=== PATIENT | male | born 1965 | race Caucasian/White ===

== ENCOUNTER 2019-03-20 12:00 | Emergency (ER) | payer SELFPAY ==
[~2019-03-20] VITALS: Ht 170.2 cm; Wt 62.1 kg
[2019-03-20 12:03] VITALS: Ht 170.2 cm; Wt 62.1 kg
[2019-03-20 14:10] VITALS: BP 125/76
== END 2019-03-20 14:10 | disposition home or self-care (01) ==
LOC: ED 12:00
DX: S90.414A Abrasion, right lesser toe(s), initial encounter (principal); W20.8XXA Other cause of strike by thrown, projected or falling object, initial encounter; Y93.89 Activity, other specified; Y92.89 Other specified places as the place of occurrence of the external cause; Y99.8 Other external cause status
CPT/HCPCS: 90715